=== PATIENT | female | born 1995 | race Caucasian/White ===

== ENCOUNTER 2017-04-05 02:35 | Emergency (ER) | payer BC ==
--- NOTE | 2017-04-05 02:44 | EDM.PDOC ---
ED HPI GENERAL MEDICAL PROBLEM - General Stated Complaint: HAS IUD AND ITS PAINFUL [id number] Time Seen by Provider: 04/05/17 02:50 Source of Information: Reports: Patient History Limitations: Reports: No Limitations - History of Present Illness INITIAL COMMENTS - FREE TEXT/NARRATIVE: ED with c/o severe lower abdominal pain/cramping , concerned if IUD problem, noticed IUD string lower than usual. No urinary c/o. More vaginal discharge than usual. No fever or chills. Minimal improvement with Ibuprofen. LMP one week ago Vaginal Pain Score (Numeric/FACES): 4 - Related Data Allergies Allergy/AdvReac Type Severity Reaction Status Date / Time No Known Allergies Allergy Verified 04/05/17 02:47 Home Meds: Home Meds . [No Known Home Meds] 04/05/17 [History] ED ROS GENERAL - Review of Systems Review Of Systems: See Below Constitutional: Denies: Fever HEENT: Reports: No Symptoms Respiratory: Reports: No Symptoms Cardiovascular: Reports: No Symptoms GI/Abdominal: Reports: Abdominal Pain (pressure) : Reports: Discharge. Denies: Dysuria Musculoskeletal: Reports: No Symptoms Skin: Reports: No Symptoms ED EXAM, GENERAL - Physical Exam Exam: See Below Exam Limited By: No Limitations General Appearance: Alert, Mild Distress Ears: Normal External Exam Throat/Mouth: Normal Inspection Head: Atraumatic, Normocephalic Neck: Normal Inspection Respiratory/Chest: No Respiratory Distress Cardiovascular: Normal Peripheral Pulses, Regular Rate, Rhythm, Tachycardia GI/Abdominal: Normal Bowel Sounds, Soft, Tender (suprapubic) (Female) Exam: Normal External Exam, Cervix Motion Tenderness, Vaginal Discharge (san), Other (IUD string noted, approximately 1.5cm above knot to cervical os) Neurological: Alert, Oriented Psychiatric: Normal Affect Skin Exam: Warm, Dry, Intact, Normal Color Course - Vital Signs Last Recorded V/S: Last Vital Signs Temp 97.7 F 04/05/17 02:42 Pulse 129 H 04/05/17 02:42 Resp 16 04/05/17 02:42 BP 148/93 H 04/05/17 02:42 Pulse Ox 98 04/05/17 02:42 - Orders/Labs/Meds Labs: Laboratory Tests 04/05/17 04/05/17 04/05/17 Range/Units 03:10 03:10 03:25 WBC 7.8 (5.0-10.0) 10^3/uL RBC 4.65 (4.2-5.4) 10^6/uL Hgb 13.0 (12.0-16.0) g/dL Hct 37.9 (37.0-47.0) % MCV 81.5 (80-100) fL MCH 28.0 (27.0-34.0) pg MCHC 34.3 (33.0-35.0) g/dL Plt Count 295 (150-450) 10^3/uL Neut % (Auto) 38.6 L (42.2-75.2) % Lymph % (Auto) 46.0 (20.5-50.1) % [place] % (Auto) 10.2 H (2-8) % Eos % (Auto) 4.8 H (1.0-3.0) % Baso % (Auto) 0.4 (0.0-1.0) % Sodium (135-145) mmol/L Potassium (3.6-5.0) mmol/L Chloride (101-111) mmol/L Carbon Dioxide (21.0-31.0) mmol/L Anion Gap BUN (7-18) mg/dL Creatinine (0.6-1.3) mg/dL Est Cr Clr Drug Dosing mL/min Estimated GFR (MDRD) BUN/Creatinine Ratio Glucose (74-105) mg/dL Calcium (8.4-10.2) mg/dl Total Bilirubin (0.2-1.0) mg/dL AST (10-42) IU/L ALT (10-60) IU/L Alkaline Phosphatase (42-121) IU/L Total Protein (6.7-8.2) g/dl Albumin (3.2-5.5) g/dl Globulin Albumin/Globulin Ratio HCG, Qual Urine Color Yellow (YELLOW) Urine Appearance Clear (CLEAR) Urine pH 6.0 (5.0-9.0) Ur Specific [place] <= 1.005 (1.005-1.030) Urine Protein Negative (NEGATIVE) Urine Glucose (UA) Negative (NEGATIVE) Urine Ketones Negative (NEGATIVE) Urine Occult Blood Negative (NEGATIVE) Urine Nitrite Negative (NEGATIVE) Urine Bilirubin Negative (NEGATIVE) Urine Urobilinogen 0.2 (0.2-1.0) mg/dL Ur Leukocyte Esterase Negative (NEGATIVE) Urine RBC Not seen /HPF Urine WBC Not seen (0-5/HPF) /HPF Ur Epithelial Cells Few /HPF Urine Bacteria Few (0-FEW/HPF) /HPF Urine HCG, Qual Negative 04/05/17 Range/Units 03:25 WBC (5.0-10.0) 10^3/uL RBC (4.2-5.4) 10^6/uL Hgb (12.0-16.0) g/dL Hct (37.0-47.0) % MCV (80-100) fL MCH (27.0-34.0) pg MCHC (33.0-35.0) g/dL Plt Count (150-450) 10^3/uL Neut % (Auto) (42.2-75.2) % Lymph % (Auto) (20.5-50.1) % [place] % (Auto) (2-8) % Eos % (Auto) (1.0-3.0) % Baso % (Auto) (0.0-1.0) % Sodium 141 (135-145) mmol/L Potassium 4.4 (3.6-5.0) mmol/L Chloride 105 (101-111) mmol/L Carbon Dioxide 27.0 (21.0-31.0) mmol/L Anion Gap 13.4 BUN 11 (7-18) mg/dL Creatinine 0.9 (0.6-1.3) mg/dL Est Cr Clr Drug Dosing 96.96 mL/min Estimated GFR (MDRD) > 60 BUN/Creatinine Ratio 12.22 Glucose 97 (74-105) mg/dL Calcium 9.3 (8.4-10.2) mg/dl Total Bilirubin 0.4 (0.2-1.0) mg/dL AST 23 (10-42) IU/L ALT 20 (10-60) IU/L Alkaline Phosphatase 52 (42-121) IU/L Total Protein 7.9 (6.7-8.2) g/dl Albumin 4.9 (3.2-5.5) g/dl Globulin 3.0 Albumin/Globulin Ratio 1.63 HCG, Qual Negative Urine Color (YELLOW) Urine Appearance (CLEAR) Urine pH (5.0-9.0) Ur Specific [place] (1.005-1.030) Urine Protein (NEGATIVE) Urine Glucose (UA) (NEGATIVE) Urine Ketones (NEGATIVE) Urine Occult Blood (NEGATIVE) Urine Nitrite (NEGATIVE) Urine Bilirubin (NEGATIVE) Urine Urobilinogen (0.2-1.0) mg/dL Ur Leukocyte Esterase (NEGATIVE) Urine RBC /HPF Urine WBC (0-5/HPF) /HPF Ur Epithelial Cells /HPF Urine Bacteria (0-FEW/HPF) /HPF Urine HCG, Qual Meds: Medications Discontinued Medications Generic Name Dose Route Start Last Admin Trade Name Freq PRN Reason Stop Dose Admin Iopamidol 100 ml 04/05/17 03:38 04/05/17 04:08 Isovue-300 (61%) IVPUSH 04/05/17 03:39 100 ml ONETIME ONE Administration - Radiology Interpretation Free Text/Narrative:: CT abdomen: no acute findings Departure - Departure Time of Disposition: 04:55 Disposition: Home, Self-Care 01 Condition: Good Clinical Impression: Bacterial vaginosis Abdominal pain Qualifiers: Abdominal location: lower abdomen, unspecified Qualified Code(s): R10.30 - Lower abdominal pain, unspecified - Discharge Information Instructions: Pelvic Pain, Female Referrals: PCP,None [Primary Care Provider] - Forms: ED Department Discharge Additional Instructions: laternate tylenol and ibuprofen for discomfort metrogel one application PV nightly x 5 Clinic follow up next week
[2017-04-05] MEDS ORDERED: Iopamidol 612 MG/ML 100 ML Bottle IVPUSH ONE (03:38)
[2017-04-05 03:51] LABS: ANION GAP 13.4; CHLORIDE,CL 105 mmol/L (101-111); SODIUM,NA 141 mmol/L (135-145)
== END 2017-04-05 05:07 | disposition home or self-care (01) ==
LOC: DL.ED 02:35
DX: N76.0 Acute vaginitis (principal)
CPT/HCPCS: 36415; 74177; 80053; 81001; 81025; 84703; 85025; 87210; 87491; 87591; 99284; Q9967